=== PATIENT | male | born 1950 | race Caucasian/White ===

== ENCOUNTER 2017-08-15 17:40 | Emergency (ER) | payer MEDICARE, BC ==
[2017-08-15] MEDS ORDERED: Alum Hydrox/Mag Hydrox/Simeth 30 ML, Lidocaine 2% 15 ML PO ONE ×2 (19:01)
[2017-08-15] MEDS ORDERED: Pantoprazole 40 MG Tab.CR ONE (20:02)
--- NOTE | 2017-08-15 20:44 | EDM.PDOC ---
ED HPI GENERAL MEDICAL PROBLEM - General Chief Complaint: Abdominal Pain Stated Complaint: chest pain sweating Time Seen by Provider: 08/15/17 18:40 Source of Information: Reports: Patient History Limitations: Reports: No Limitations - History of Present Illness INITIAL COMMENTS - FREE TEXT/NARRATIVE: This patient complains of right upper quadrant pain since about 3 PM today. He says it's kind of a constant pain. He's had the same pain on an occasional basis for the past week. He said the pain would come on and last about 10 minutes and just go away all by itself. There's been no fever no nausea vomiting diarrhea is moving his bowels normally. He hasn't really eaten anything today so he doesn't know if that will affect the pain or not. No history of any abdominal surgeries. No history of peptic ulcer disease no history of any heart disease. He said the pain has subsided some at the time that I saw him area he described it as about a 5 out of 10. Later his complained that he was very diaphoretic when he came into the hospital. He said as soon as he got here the the diaphoresis stopped. - Related Data Allergies Allergy/AdvReac Type Severity Reaction Status Date / Time No Known Allergies Allergy Verified 04/06/15 07:59 Home Meds: Home Meds Aspirin [Low Dose Aspirin EC] 81 mg PO DAILY 04/03/15 [History] HCTZ/Triamterene [Maxzide 25-37.5 MG] 1 tab PO DAILY 04/03/15 [History] Lisinopril [Prinivil] 20 mg PO DAILY 04/03/15 [History] Simvastatin [Zocor] 20 mg PO DAILY 04/03/15 [History] Past Medical History Cardiovascular History: Reports: High Cholesterol, Hypertension Social & Family History - Tobacco Use Smoking Status *Q: Current Every Day Smoker Years of Tobacco use: 40 Packs/Tins Daily: 1 Used Tobacco, but Quit: No Second Hand Smoke Exposure: Yes - Alcohol Use Days Per Week of Alcohol Use: 7 Number of Drinks Per Day: 2 Total Drinks Per Week: 14 - Recreational Drug Use Recreational Drug Use: No ED ROS GENERAL - Review of Systems Review Of Systems: ROS reveals no pertinent complaints other than HPI. ED EXAM, GI/ABD - Physical Exam Exam: See Below Exam Limited By: No Limitations General Appearance: Alert, WD/WN, No Apparent Distress Eyes: Bilateral: Normal Appearance Respiratory/Chest: Lungs Clear Cardiovascular: Regular Rate, Rhythm, No Murmur GI/Abdominal Exam: Normal Bowel Sounds, Soft, Non-Tender (No areas of tenderness were found. No masses) Extremities: Normal Inspection Neurological: Alert, Oriented Psychiatric: Normal Affect Skin Exam: Warm, Dry Course - Vital Signs Last Recorded V/S: Last Vital Signs Temp 36.5 C 08/15/17 19:29 Pulse 70 08/15/17 19:29 Resp 10 L 08/15/17 19:29 BP 134/85 08/15/17 19:29 Pulse Ox 99 08/15/17 19:29 - Orders/Labs/Meds Orders: Active Orders 24 hr Category Date Time Status EKG Documentation Completion [RC] ASDIRECTED Care 08/15/17 19:01 Active Pantoprazole [ProTONIX] Med 08/16/17 19:57 Once 40 mg PO ONETIME ONE EKG 12 Lead [EK] Urgent Ther 08/15/17 19:00 Ordered Medication Orders Pantoprazole Sodium (Protonix) 40 mg PO ONETIME ONE Stop: 08/16/17 19:58 Last Admin: 08/15/17 20:03 Dose: 40 mg Labs: Laboratory Tests 08/15/17 08/15/17 08/15/17 Range/Units 19:13 19:13 19:57 WBC 15.6 H (4.5-11.0) K/uL RBC 5.40 (4.30-5.90) M/uL Hgb 15.6 H (12.0-15.0) g/dL Hct 45.3 (40.0-54.0) % MCV 84 (80-98) fL MCH 29 (27-31) pg MCHC 34 (32-36) % Plt Count 231 (150-400) K/uL Neut % (Auto) 87 H (36-66) % Lymph % (Auto) 9 L (24-44) % [place] % (Auto) 3 (2-6) % Eos % (Auto) 0 L (2-4) % Baso % (Auto) 0 (0-1) % Sodium 140 (140-148) mmol/L Potassium 4.3 (3.6-5.2) mmol/L Chloride 104 (100-108) mmol/L Carbon Dioxide 27 (21-32) mmol/L Anion Gap 9.0 (5.0-14.0) mmol/L BUN 21 H (7-18) mg/dL Creatinine 1.1 (0.8-1.3) mg/dL Est Cr Clr Drug Dosing 55.67 mL/min Estimated GFR (MDRD) > 60 (>60) Glucose 167 H (74-106) mg/dL Calcium 9.3 (8.5-10.1) mg/dL Total Bilirubin 0.4 (0.2-1.0) mg/dL AST 17 (15-37) U/L ALT 33 (12-78) U/L Alkaline Phosphatase 78 (46-116) U/L Troponin I < 0.017 (0.000-0.056) ng/mL Total Protein 7.3 (6.4-8.2) g/dL Albumin 4.0 (3.4-5.0) g/dL Globulin 3.3 (2.3-3.5) g/dL Albumin/Globulin Ratio 1.2 (1.2-2.2) Meds: Medications Generic Name Dose Route Start Last Admin Trade Name Frenitza PRN Reason Stop Dose Admin Pantoprazole Sodium 40 mg 08/16/17 19:57 08/15/17 20:03 Protonix PO 08/16/17 19:58 40 mg ONETIME ONE Administration Discontinued Medications Generic Name Dose Route Start Last Admin Trade Name Sean PRN Reason Stop Dose Admin Al Hydroxide/Mg Hydroxide 30 0 ml 08/15/17 19:01 08/15/17 19:05 ml/ Lidocaine HCl 15 ml PO 08/15/17 19:02 45 ml ONETIME ONE Administration Pantoprazole Sodium Confirm 08/15/17 20:02 08/15/17 20:09 Protonix Administered 08/15/17 20:03 Not Given Dose 40 mg .ROUTE .STK-MED ONE - Re-Assessments/Exams Free Text/Narrative Re-Assessment/Exam: 08/15/17 20:42 EKG showed normal sinus rhythm at 67 bpm normal QRS normal ST and T waves. Labs were reviewed. The white blood cell count is mildly elevated with some left shift. 08/15/17 20:43 Since the patient is having pain without any tenderness I was concerned that this might be a cardiac issue. This EKG was done and then I did a troponin. The troponin when it was drawn it was at about 4 hours after his pain started. Therefore there was no reason to repeat the troponin. The patient received a GI cocktail and he does think that helped quite a bit. He is just having very mild discomfort at the time of discharge. He received Protonix 40 mg by mouth Departure - Departure Time of Disposition: 20:44 Disposition: Home, Self-Care 01 Condition: Fair Clinical Impression: Right upper quadrant abdominal pain - Discharge Information Referrals: Grabiel Ponce MD [Primary Care Provider] - Additional Instructions: The pain you're having is likely is from gastritis or duodenitis or possibly even an ulcer. You should bring back a stool sample to be tested for H. pylori. That's a bacteria that can be implicated in ulcer disease. Take omeprazole 20 mg once or twice daily. The zoun-jof-earkmuv medication is okay. Also use antacids frequently the best antiacids or Maalox Mylanta but and antiacids tablet such as Tums will also work. If you use the time you need to take 3 or 4 tablets at one time. The sweating you had may have been caused by a vasovagal reaction that something that happens when people have abdominal pain and they're heart slows down and blood pressure drops and they break out in sweats. It's not anything serious. I don't see any evidence of a heart attack Plan to see your DrEdwin in a few days. Return to the ER at any time if worse - My Orders Last 24 Hours: My Active Orders 08/15/17 19:00 EKG 12 Lead [EK] Urgent 08/15/17 19:01 EKG Documentation Completion [RC] ASDIRECTED 08/16/17 19:57 Pantoprazole [ProTONIX] 40 mg PO ONETIME ONE - Assessment/Plan Last 24 Hours: My Active Orders 08/15/17 19:00 EKG 12 Lead [EK] Urgent 08/15/17 19:01 EKG Documentation Completion [RC] ASDIRECTED 08/16/17 19:57 Pantoprazole [ProTONIX] 40 mg PO ONETIME ONE
[2017-08-15 21:05] VITALS: BP 143/85
[2017-08-16] MEDS ORDERED: Pantoprazole 40 MG Tab.CR PO ONE (19:57)
== END 2017-08-15 21:06 | disposition home or self-care (01) ==
LOC: JP.ED 17:40
DX: R10.11 Right upper quadrant pain (principal); E78.00 Pure hypercholesterolemia, unspecified; I10 Essential (primary) hypertension; F17.210 Nicotine dependence, cigarettes, uncomplicated; Z79.82 Long term (current) use of aspirin; Z79.899 Other long term (current) drug therapy
CPT/HCPCS: 36415; 80053; 84484; 85025; 93005; 99285; A9270

== ENCOUNTER 2017-12-23 07:43 | Day surgery (SDC) | payer MEDICARE, BC ==
[2017-12-23] MEDS ORDERED: Lactated Ringers 1,000 ML IV SCH (08:30)
[2017-12-23] MEDS ORDERED: Propofol 200 MG/20 ML SDV ONE (08:59)
[2017-12-23] MEDS ORDERED: fentaNYL 100 MCG/2 ML SDV ONE (08:59)
[2017-12-23] MEDS ORDERED: Midazolam 1 MG/ML 2 ML SDV ONE (08:59)
[2017-12-23 10:52] VITALS: BP 117/78
--- NOTE | 2017-12-23 11:42 | OR ---
DATE OF PROCEDURE: 12/23/2017 PREOPERATIVE DIAGNOSIS: History of adenomatous colon polyps. POSTOPERATIVE DIAGNOSES: 1. Diverticulosis. 2. Two small colon polyps, hepatic flexure and 25 cm from the anal verge. 3. History of adenomatous colon polyps. PROCEDURES PERFORMED: Colonoscopy to the cecum with biopsy resection of 2 small colon polyps, hepatic flexure and 25 cm from the anal verge. ANESTHESIA: IV anesthesia with monitored anesthesia care. INDICATION: This 67-year-old white male is referred for a colonoscopy because of a history of adenomatous colon polyps. His last colonoscopic exam, he says, was done 3 years ago. I counseled him for the procedure including risks and alternatives, and he gave his informed consent to proceed. DESCRIPTION OF PROCEDURE: The patient was placed in the left lateral decubitus position. IV anesthesia was administered by the Anesthesia Service. Time-out was held. A rectal exam was performed, which was unremarkable. The flexible video Olympus colonoscope was introduced through his anus, up his rectum and out his colon, all the way to the cecum. En route, we saw a few scattered diverticula. There was no bleeding or inflammation associated with them. Also, en route to the cecum, we saw a small polyp at the hepatic flexure, which was removed with a couple of bites of the biopsy forceps. Once the cecum was reached, the scope was slowly withdrawn, examining the mucosa throughout. No additional mucosal abnormalities were noted until we reached 25 cm from the anal verge. Here, we saw a small polyp, which was removed with the biopsy forceps. The scope was brought back in the rectum, where it was retroflexed. The distal rectum appeared unremarkable. The scope was straightened and removed. He tolerated the procedure well. Paul Theodore MD /[id number]
== END 2017-12-23 11:02 | disposition home or self-care (01) ==
LOC: JP.SDS 07:43
PROVIDERS: ATTEND Surgery
DX: Z12.11 Encounter for screening for malignant neoplasm of colon (principal); D12.3 Benign neoplasm of transverse colon; K63.5 Polyp of colon; K57.30 Diverticulosis of large intestine without perforation or abscess without bleeding; I10 Essential (primary) hypertension; J44.9 Chronic obstructive pulmonary disease, unspecified; G47.33 Obstructive sleep apnea (adult) (pediatric); E78.5 Hyperlipidemia, unspecified; Z86.010 Personal history of colon polyps
CPT/HCPCS: 45380; J2250; J2704; J3010; J7120

== ENCOUNTER 2018-01-19 05:50 | Day surgery (SDC) | payer MEDICARE, BC ==
[2018-01-19] MEDS ORDERED: Sodium Chloride 0.9% 1,000 ML IV SCH ×2 (06:30→14:30)
[2018-01-19] MEDS ORDERED: Bupivacaine 0.5% 50 ML MDV ONE (06:53)
[2018-01-19] MEDS ORDERED: Lidocaine 1% with EPINEPHrine 1:100,000 50 ML MDV ONE (06:53)
[2018-01-19] MEDS ORDERED: Ondansetron 4 MG/2 ML SDV ONE (07:22)
[2018-01-19] MEDS ORDERED: Glycopyrrolate 0.2 MG/ML 5 ML MDV ONE (07:22)
[2018-01-19] MEDS ORDERED: Dexamethasone 4 MG/ML SDV ONE (07:22)
[2018-01-19] MEDS ORDERED: Propofol 200 MG/20 ML SDV ONE (07:22)
[2018-01-19] MEDS ORDERED: fentaNYL 250 MCG/5 ML SDV ONE (07:22)
[2018-01-19] MEDS ORDERED: Rocuronium 50 MG/5 ML Vial ONE (07:22)
[2018-01-19] MEDS ORDERED: Neostigmine Methylsulfate 1 MG/ML 5 ML Syringe ONE (07:22)
[2018-01-19] MEDS ORDERED: metroNIDAZOLE/Normal Saline 500 MG in Premix Bag 1 BAG IV ONE (07:30)
[2018-01-19] MEDS ORDERED: ceFAZolin 2 GM in Premix Bag 1 BAG IV ONE (07:30)
[2018-01-19] MEDS ORDERED: Acetaminophen 325 MG Tab PO PRN (07:50)
[2018-01-19] MEDS ORDERED: Acetaminophen/HYDROcodone 325-5 MG Tab PO PRN (07:50)
[2018-01-19] MEDS ORDERED: Benzocaine/Cetylpyridinium/Menthol Lozenge MUCMEM PRN (07:50)
[2018-01-19] MEDS ORDERED: Zolpidem 5 MG Tab PO PRN (07:50)
[2018-01-19] MEDS ORDERED: diphenhydrAMINE 50 MG/ML SDV IVPUSH PRN (07:50)
[2018-01-19] MEDS ORDERED: fentaNYL 100 MCG/2 ML SDV IVPUSH PRN (07:50)
[2018-01-19] MEDS ORDERED: Bisacodyl 5 MG Tab PO PRN (07:50)
[2018-01-19] MEDS ORDERED: Lactated Ringers 1,000 ML ONE (09:18)
[2018-01-19] MEDS ORDERED: Ketorolac 60 MG/2 ML SDV ONE (09:23)
[2018-01-19] MEDS ORDERED: fentaNYL 100 MCG/2 ML SDV ONE (09:29)
[2018-01-19] MEDS ORDERED: Lactated Ringers 500 ML IV ONE (11:30)
[2018-01-19] MEDS ORDERED: Sodium Chloride 0.9% 1,000 ML IV ONE (12:19)
[2018-01-19] MEDS ORDERED: Lidocaine 2% Jelly 10 ML Urojet MUCMEM ONE (13:26)
[2018-01-19] MEDS ORDERED: Finasteride 5 MG Tab PO SCH (17:00)
--- NOTE | 2018-01-19 17:55 | PN ---
DATE OF SERVICE: 01/19/2018 The patient recently underwent a successful laparoscopic cholecystectomy. Unfortunately, immediately in the perioperative/postoperative area, the Mathews catheter was removed, and the balloon might have been partially deflated. This resulted in some significant bleeding from the urethra. A consultation was obtained with the Urology services at [facility]. After presenting the case, the recommendations at this point were to not attempt to place a Mathews catheter at this time, place the patient on Proscar, and reassess in the a.m. Therefore, the patient will remain in the hospital this evening for management and observation. A CBC has also been ordered in the morning. In discussing with the patient, the injury was disclosed to him. He did state that he has some ongoing prostate issues, which are obviously a contributing factor to this. When the patient was last seen, he was urinating on his own, albeit slow, but this has improved. His vital signs have remained stable. Total bleeding was approximately 100 mL with respect to urethral bleeding or less. Rodrigue Ruiz MD /[id number]
[2018-01-19] MEDS: Sodium Chloride 0.9% 1,000 ML IV SCH (23:04)
--- NOTE | 2018-01-20 06:57 | OR ---
DATE OF PROCEDURE: 01/19/2018 PROCEDURE: Laparoscopic cholecystectomy. PREOPERATIVE DIAGNOSES: Cholelithiasis and cholecystitis. POSTOPERATIVE DIAGNOSES: Cholelithiasis and cholecystitis. FINDINGS: 1. Dense adhesions/adherence of the gallbladder to the liver. 2. Omental wrapping around gallbladder consistent with significant cholecystitis. COMPLICATIONS: None. PEDIATRIC CARE COORDINATOR: None. ANESTHESIA: General/local. RISKS: In the clinic and prior to the surgery; preoperative risks, benefits, alternatives, and limitations including, but not limited to infection, bleeding, perforation, injury to abdominal structures, injury to bowel and bladder, the possibility of open surgery, cystic duct leaks, and common bile duct injuries were all explained to the patient among others not listed here. We also discussed cardiovascular issues associated with the general risks of surgery. PROCEDURE IN DETAIL: The patient was placed in the supine position. A supraumbilical curvilinear incision was made. A Veress needle was used to enter the abdomen without abnormality. A drop test was performed without abnormality. The abdomen was subsequently insufflated with a Veress needle, this was then removed, and an Optiview trocar was inserted. No evidence of trauma or enterotomy or injury was noted. A photo was taken of the entry point. An additional 10 and two 5 mm ports were also entered under direct visualization. The gallbladder itself was completely surrounded with omentum and significant adhesions were associated with this. Also, of note, the stomach was in close proximity to the gallbladder, however, it was not directly contacting this. Using blunt dissection, the gallbladder will be mobilized from this. The gallbladder was retracted cephalad and the infundibulum was retracted inferolaterally. Over the next approximately 30 minutes, a blunt dissection was performed with a "clear view" of the gallbladder, a single pulsatile structure in the gallbladder and a single nonpulsatile structure in the gallbladder, that itself was small. The cystic duct would be clipped and then subsequently transected. Images were also taken. The remaining one-third of the gallbladder was removed off the liver without difficulty, except for the cap portion of the gallbladder was densely adhered and during this process, small bile leakage was noted, but was suctioned and later irrigated. Total leakage was approximately 2 to 5 mL. The gallbladder was removed from the abdomen in a gallbladder bag. The liver bed was inspected. Minimal bleeding was controlled with electrocautery. The abdomen was thoroughly irrigated with approximately 750 mL of irrigation. The patient was turned in multiple positions to maximize removal of the saline. The entry point was then reinspected. The air was removed. The wounds were thoroughly irrigated. The bag did not break during removal. The wounds were closed with 3-0 Vicryl and 4-0 Vicryl and Dermabond. The patient tolerated the procedure well. Rodrigue Ruiz MD /[id number]
[2018-01-20 07:22] VITALS: BP 108/73
[2018-01-20] MEDS: Sodium Chloride 0.9% 1,000 ML IV SCH (07:22)
--- NOTE | 2018-01-20 09:28 | US ---
Pelvis Non OB Ltd CLINICAL HISTORY: Hematuria FINDINGS: Real-time transvesical images through the bladder show no intraluminal filling defects. The re is no wall thickening. Full bladder volume was 361-cc. Bilateral ureteral jets were identified. No free fluid is seen in the pelvis. Prostate is enlarged IMPRESSION: Essentially normal-appearing bladder with no filling defects Prostatic enlargement
== END 2018-01-20 09:16 | disposition home or self-care (01) ==
LOC: JP.SDS 05:50 → JP.2SS 07:50 → JP.SDS 01-20 09:16
PROVIDERS: ATTEND Surgery
DX: K80.10 Calculus of gallbladder with chronic cholecystitis without obstruction (principal); K82.8 Other specified diseases of gallbladder; N99.820 Postprocedural hemorrhage of a genitourinary system organ or structure following a genitourinary system procedure; I10 Essential (primary) hypertension; J44.9 Chronic obstructive pulmonary disease, unspecified; G47.33 Obstructive sleep apnea (adult) (pediatric); F17.290 Nicotine dependence, other tobacco product, uncomplicated; E78.5 Hyperlipidemia, unspecified; Z79.82 Long term (current) use of aspirin; Z79.899 Other long term (current) drug therapy
CPT/HCPCS: 36415; 47562; 51702; 76857; 80053; 85027; 87070; 87075; 87205; 88304; A9270; J0690; J1100; J1885; J2405; J2704; J2710; J3010; J3490; J7030; J7120

== ENCOUNTER 2018-01-21 09:38 | Emergency (ER) | payer MEDICARE, BC ==
[2018-01-21] MEDS ORDERED: Ondansetron 4 MG/2 ML SDV IVPUSH ONE ×2 (10:54→13:38)
[2018-01-21] MEDS ORDERED: Sodium Chloride 0.9% 1,000 ML IV SCH ×2 (11:00→12:30)
--- NOTE | 2018-01-21 11:05 | EDM.PDOC ---
ED HPI GENERAL MEDICAL PROBLEM - General Chief Complaint: Gastrointestinal Problem Stated Complaint: BEEN VOMING HAD GULLBLADDER SURGERY Time Seen by Provider: 01/21/18 11:01 Source of Information: Reports: Patient History Limitations: Reports: No Limitations - History of Present Illness INITIAL COMMENTS - FREE TEXT/NARRATIVE: pt had his GB removed on thursday nad he has not had a stool since that time. He passed gas this am but had not passed gas prior to that. He has not had any stools. He did vomit three times this am. He vomited alot of green material. Onset: Gradual, Other ( Pt has not done well post coby. ) Duration: Hour(s): Location: Reports: Abdomen Associated Symptoms: Reports: Nausea/Vomiting, Other ( No stools. ) - Related Data Allergies Allergy/AdvReac Type Severity Reaction Status Date / Time No Known Allergies Allergy Verified 01/21/18 10:00 Home Meds: Home Meds Aspirin [Low Dose Aspirin EC] 81 mg PO DAILY 04/03/15 [History] HCTZ/Triamterene [Maxzide 25-37.5 MG] 1 tab PO DAILY 04/03/15 [History] Lisinopril [Prinivil] 10 mg PO DAILY 04/03/15 [History] Simvastatin [Zocor] 20 mg PO DAILY 04/03/15 [History] Albuterol Sulfate [Proair Hfa] 1 - 2 puff IH Q4HR PRN 12/21/17 [History] Past Medical History Cardiovascular History: Reports: High Cholesterol, Hypertension Respiratory History: Reports: COPD Gastrointestinal History: Reports: Cholelithiasis - Infectious Disease History Infectious Disease History: Reports: Chicken Pox, Measles, Mumps - Past Surgical History Cardiovascular Surgical History: Reports: None GI Surgical History: Reports: Cholecystectomy, Colonoscopy Social & Family History - Family History Cardiac: Reports: Pacemaker GI: Reports: Cholelithiasis Psychiatric: Reports: Depression - Caffeine Use Caffeine Use: Reports: Coffee - Recreational Drug Use Recreational Drug Use: No ED ROS GENERAL - Review of Systems Review Of Systems: See Below Constitutional: Reports: No Symptoms HEENT: Reports: No Symptoms Respiratory: Reports: No Symptoms Cardiovascular: Reports: No Symptoms Endocrine: Reports: No Symptoms GI/Abdominal: Reports: Distension, Other (pt is vomiting and has not had any stools. ) : Reports: No Symptoms Musculoskeletal: Reports: No Symptoms Skin: Reports: No Symptoms Neurological: Reports: No Symptoms ED EXAM, GI/ABD - Physical Exam Exam: See Below Text/Narrative:: PT ARRIVED WITH AHISTORY OF VOMITING SEVERAL TIMES THIS AM. hE HAS NOT HAD A BM SINCE Exam Limited By: No Limitations General Appearance: Alert, Mild Distress, Other (PUPILS ARE EQUAL AND REACTIVE. ) Ears: Normal TMs Nose: Normal Inspection Throat/Mouth: Normal Inspection Head: Atraumatic Neck: Normal Inspection Respiratory/Chest: No Respiratory Distress Cardiovascular: Regular Rate, Rhythm GI/Abdominal Exam: Other (MILD DISTENTION AND TENDERNESS. ) (Male) Exam: Deferred Rectal (Males) Exam: Deferred Back Exam: Normal Inspection Extremities: Normal Inspection Neurological: Alert, Oriented, Normal Cognition Psychiatric: Normal Affect Course - Vital Signs Last Recorded V/S: Last Vital Signs Temp 37.2 C 01/21/18 09:58 Pulse 95 01/21/18 09:58 Resp 16 01/21/18 09:58 BP 122/72 01/21/18 09:58 Pulse Ox 95 01/21/18 09:58 - Orders/Labs/Meds Orders: Active Orders 24 hr Category Date Time Status UA W/MICROSCOPIC [URIN] Urgent Lab 01/21/18 12:05 Ordered Sodium Chloride 0.9% [Normal Saline] 1,000 ml Med 01/21/18 11:00 Active IV ASDIRECTED Sodium Chloride 0.9% [Normal Saline] 1,000 ml Med 01/21/18 12:30 Active IV ASDIRECTED Medication Orders Sodium Chloride (Normal Saline) 1,000 mls @ 999 mls/hr IV ASDIRECTED PRERNA Last Admin: 01/21/18 12:14 Dose: 999 mls/hr Sodium Chloride (Normal Saline) 1,000 mls @ 999 mls/hr IV ASDIRECTED PRERNA Labs: Laboratory Tests 01/21/18 01/21/18 01/21/18 Range/Units 11:06 11:06 11:06 WBC 18.8 H (4.5-11.0) K/uL RBC 5.01 (4.30-5.90) M/uL Hgb 14.6 D (12.0-15.0) g/dL Hct 42.5 (40.0-54.0) % MCV 85 (80-98) fL MCH 29 (27-31) pg MCHC 34 (32-36) % Plt Count 225 (150-400) K/uL Neut % (Auto) 79 H (36-66) % Lymph % (Auto) 12 L (24-44) % [place] % (Auto) 8 H (2-6) % Eos % (Auto) 0 L (2-4) % Baso % (Auto) 0 (0-1) % Sodium 137 L (140-148) mmol/L Potassium 3.8 (3.6-5.2) mmol/L Chloride 103 (100-108) mmol/L Carbon Dioxide 29 (21-32) mmol/L Anion Gap 8.8 (5.0-14.0) mmol/L BUN 16 (7-18) mg/dL Creatinine 1.0 (0.8-1.3) mg/dL Est Cr Clr Drug Dosing 71.99 mL/min Estimated GFR (MDRD) > 60 (>60) Glucose 125 H (74-106) mg/dL Calcium 10.0 (8.5-10.1) mg/dL Total Bilirubin 0.6 (0.2-1.0) mg/dL AST 33 (15-37) U/L ALT 69 (12-78) U/L Alkaline Phosphatase 61 (46-116) U/L Total Protein 6.9 (6.4-8.2) g/dL Albumin 3.5 (3.4-5.0) g/dL Globulin 3.4 (2.3-3.5) g/dL Albumin/Globulin Ratio 1.0 L (1.2-2.2) Lipase 64 L (73-393) U/L Meds: Medications Generic Name Dose Route Start Last Admin Trade Name Freq PRN Reason Stop Dose Admin Sodium Chloride 1,000 mls @ 999 mls/hr 01/21/18 11:00 01/21/18 12:14 Normal Saline IV 999 mls/hr ASDIRECTED PRERNA Administration Sodium Chloride 1,000 mls @ 999 mls/hr 01/21/18 12:30 Normal Saline IV ASDIRECTED PRERNA Discontinued Medications Generic Name Dose Route Start Last Admin Trade Name Freq PRN Reason Stop Dose Admin Ondansetron HCl 4 mg 01/21/18 10:54 01/21/18 12:15 Zofran IVPUSH 01/21/18 10:55 4 mg ONETIME ONE Administration Ondansetron HCl 4 mg 01/21/18 13:38 01/21/18 14:06 Zofran IVPUSH 01/21/18 13:39 4 mg ONETIME ONE Administration - Re-Assessments/Exams Free Text/Narrative Re-Assessment/Exam: 01/21/18 12:48 pT HAS A 18,000 WBC. hIS OTHER LABS LOOK GOOD. hE WILL BE GIVEN 2 LITERS OF FLUID. hIS FLAT AND UPRIGHT HAVE A FEW AIR FLUID LEVELS. hE HAS ALOT OF STOOL IN THE RT UPPER ABDOMAN. hE HAS BEEN GIVEN ZOFORAN IV AND HIS NAUSEA IS BETTER. dR RUIZ WAS CALLED AND HE WILL COME AND SEE HIM. 01/21/18 14:08 pt was offered to stay over nite but he insisted on going home. Dr Ruiz came to see pt and wrote discharge orders since he insisted on going home. Departure - Departure Time of Disposition: 14:10 Disposition: Home, Self-Care 01 Condition: Fair Clinical Impression: Ileus, Dehydration, Post-cholecystectomy syndrome - Discharge Information Referrals: Grabiel Ponce MD [Primary Care Provider] - Forms: ED Department Discharge Care Plan Goals: discharge per Dr Ruiz - My Orders Last 24 Hours: My Active Orders 01/21/18 11:00 Sodium Chloride 0.9% [Normal Saline] 1,000 ml IV ASDIRECTED 01/21/18 12:05 UA W/MICROSCOPIC [URIN] Urgent 01/21/18 12:30 Sodium Chloride 0.9% [Normal Saline] 1,000 ml IV ASDIRECTED - Assessment/Plan Last 24 Hours: My Active Orders 01/21/18 11:00 Sodium Chloride 0.9% [Normal Saline] 1,000 ml IV ASDIRECTED 01/21/18 12:05 UA W/MICROSCOPIC [URIN] Urgent 01/21/18 12:30 Sodium Chloride 0.9% [Normal Saline] 1,000 ml IV ASDIRECTED
--- NOTE | 2018-01-21 12:15 | CR ---
Abdomen Series w Chest 1V CLINICAL HISTORY: Bloating and vomiting FINDINGS: Lung rosario are clear. No free air is identified. Small intestinal gas pattern is nonacute. There is moderate stool in the right colon. There is air in the low mid pelvis with the air-fluid le angle. This may be air within the bladder or possibly fluid in the rectum IMPRESSION: Nonacute intestinal gas pattern Moderate retained stool right colon Air in the low mid pelvis may be within the bladder
[2018-01-21 14:16] VITALS: BP 121/75
[2018-01-21] MEDS ORDERED: Magnesium Citrate Solution 296 ML Bottle PO ONE (14:30)
[2018-01-21] MEDS ORDERED: Scopolamine 1.5 MG Transdermal Patch TOP ONE (14:30)
--- NOTE | 2018-01-21 18:04 | PN ---
DATE OF SERVICE: 01/21/2018 The patient presented to the emergency room in concern for ileus. He is passing gas and has not had a bowel movement in a few days. X-rays consistent with constipation. The patient was recommended to be admitted; however, he declined this at this time. Therefore, we will make sure he is adequately hydrated with 2 L of saline. Orders were left in the emergency room if the patient changes his mind. We did discuss the signs and symptoms of ileus, obstipation and other concerns such as cystic duct and common bile duct leaks; although, these are less likely. His labs are normal. He is to contact us or present back to the emergency room if he liked to be admitted. Rodrigue Ruiz MD /[id number]
== END 2018-01-21 15:45 | disposition home or self-care (01) ==
LOC: JP.ED 09:38
DX: E86.0 Dehydration (principal); K56.7 Ileus, unspecified; K91.5 Postcholecystectomy syndrome; E78.00 Pure hypercholesterolemia, unspecified; I10 Essential (primary) hypertension; R11.10 Vomiting, unspecified; J44.9 Chronic obstructive pulmonary disease, unspecified; Z79.82 Long term (current) use of aspirin; Z79.899 Other long term (current) drug therapy; F17.290 Nicotine dependence, other tobacco product, uncomplicated
CPT/HCPCS: 36415; 74022; 80053; 83690; 85025; 96361; 96374; 96376; 99284; A9270; J2405; J7030

== ENCOUNTER 2018-01-23 11:34 | Emergency (ER) | payer MEDICARE, BC ==
[2018-01-23] MEDS ORDERED: Lactated Ringers 1,000 ML IV ONE (12:05)
[2018-01-23] MEDS ORDERED: Prochlorperazine 10 MG/2 ML SDV IVPUSH ONE (12:05)
--- NOTE | 2018-01-23 12:07 | EDM.PDOC ---
ED HPI GENERAL MEDICAL PROBLEM - General Chief Complaint: Gastrointestinal Problem Stated Complaint: DR RUIZ PATIENT Time Seen by Provider: 01/23/18 12:00 Source of Information: Reports: Patient, Family, RN Notes Reviewed History Limitations: Reports: No Limitations - History of Present Illness INITIAL COMMENTS - FREE TEXT/NARRATIVE: 67-year-old gentleman presents to the emergency department day complaint of nausea and vomiting, he recently had his gallbladder out this last week he is postop day 3 his problem is he has not vomited for 24 hours however if he starts to eat or drink he gets very nauseated. No fevers no shortness breath chest pain he is positive for flatus Abdomen Pain Score (Numeric/FACES): 4 - Related Data Allergies Allergy/AdvReac Type Severity Reaction Status Date / Time No Known Allergies Allergy Verified 01/21/18 10:00 Home Meds: Home Meds Aspirin [Low Dose Aspirin EC] 81 mg PO DAILY 04/03/15 [History] HCTZ/Triamterene [Maxzide 25-37.5 MG] 1 tab PO DAILY 04/03/15 [History] Lisinopril [Prinivil] 10 mg PO DAILY 04/03/15 [History] Simvastatin [Zocor] 20 mg PO DAILY 04/03/15 [History] Albuterol Sulfate [Proair Hfa] 1 - 2 puff IH Q4HR PRN 12/21/17 [History] Ondansetron [Zofran ODT] 4 mg PO Q6H PRN 01/23/18 [History] Scopolamine [Transderm-Scop] 1 each TD ONETIME PRN 01/23/18 [History] Past Medical History HEENT History: Reports: Impaired Vision Cardiovascular History: Reports: High Cholesterol, Hypertension Respiratory History: Reports: COPD Gastrointestinal History: Reports: Cholelithiasis - Infectious Disease History Infectious Disease History: Reports: Chicken Pox, Measles, Mumps - Past Surgical History Cardiovascular Surgical History: Reports: None GI Surgical History: Reports: Cholecystectomy, Colonoscopy Other GI Surgeries/Procedures: choly on 01/18/18 Social & Family History - Family History Cardiac: Reports: Pacemaker GI: Reports: Cholelithiasis Psychiatric: Reports: Depression - Tobacco Use Smoking Status *Q: Current Every Day Smoker Years of Tobacco use: 50 Packs/Tins Daily: 0.5 - Caffeine Use Caffeine Use: Reports: Coffee - Recreational Drug Use Recreational Drug Use: No ED ROS GENERAL - Review of Systems Review Of Systems: See Below Constitutional: Denies: Fever, Chills HEENT: Reports: No Symptoms Respiratory: Reports: No Symptoms Cardiovascular: Reports: No Symptoms GI/Abdominal: Reports: Flatus, Nausea, Vomiting. Denies: Abdominal Pain : Reports: No Symptoms Musculoskeletal: Reports: No Symptoms ED EXAM, GI/ABD - Physical Exam Exam: See Below Exam Limited By: No Limitations General Appearance: Alert, WD/WN, No Apparent Distress Respiratory/Chest: No Respiratory Distress, Lungs Clear, Normal Breath Sounds, No Accessory Muscle Use Cardiovascular: Regular Rate, Rhythm, No Murmur GI/Abdominal Exam: Soft, Non-Tender Course - Vital Signs Last Recorded V/S: Last Vital Signs Temp 97.7 F 01/23/18 12:21 Pulse 63 01/23/18 13:20 Resp 14 01/23/18 12:50 BP 138/81 01/23/18 13:20 Pulse Ox 96 01/23/18 13:20 - Orders/Labs/Meds Labs: Laboratory Tests 01/23/18 01/23/18 Range/Units 12:12 12:12 WBC 14.2 H (4.5-11.0) K/uL RBC 4.77 (4.30-5.90) M/uL Hgb 13.8 (12.0-15.0) g/dL Hct 40.8 (40.0-54.0) % MCV 86 (80-98) fL MCH 29 (27-31) pg MCHC 34 (32-36) % Plt Count 264 (150-400) K/uL Neut % (Auto) 79 H (36-66) % Lymph % (Auto) 13 L (24-44) % Braxton % (Auto) 7 H (2-6) % Eos % (Auto) 0 L (2-4) % Baso % (Auto) 0 (0-1) % Sodium 142 (140-148) mmol/L Potassium 3.4 L (3.6-5.2) mmol/L Chloride 103 (100-108) mmol/L Carbon Dioxide 32 (21-32) mmol/L Anion Gap 10.4 (5.0-14.0) mmol/L BUN 34 H D (7-18) mg/dL Creatinine 1.0 (0.8-1.3) mg/dL Est Cr Clr Drug Dosing TNP Estimated GFR (MDRD) > 60 (>60) Glucose 136 H (74-106) mg/dL Calcium 9.6 (8.5-10.1) mg/dL Total Bilirubin 0.5 (0.2-1.0) mg/dL AST 27 (15-37) U/L ALT 58 (12-78) U/L Alkaline Phosphatase 61 (46-116) U/L Total Protein 7.1 (6.4-8.2) g/dL Albumin 3.4 (3.4-5.0) g/dL Globulin 3.7 H (2.3-3.5) g/dL Albumin/Globulin Ratio 0.9 L (1.2-2.2) Meds: Medications Discontinued Medications Generic Name Dose Route Start Last Admin Trade Name Freq PRN Reason Stop Dose Admin Lactated Ringer's 1,000 mls @ 999 mls/hr 01/23/18 12:05 01/23/18 12:19 Ringers, Lactated IV 01/23/18 13:05 999 mls/hr BOLUS ONE Administration Prochlorperazine Edisylate 5 mg 01/23/18 12:05 01/23/18 12:18 Compazine IVPUSH 01/23/18 12:06 5 mg ONETIME ONE Administration Departure - Departure Time of Disposition: 14:39 Disposition: Home, Self-Care 01 Condition: Good Clinical Impression: Ileus - Discharge Information Referrals: Rodrigue Ruiz MD [Primary Care Provider] - Forms: ED Department Discharge Additional Instructions: Continue with your regular medications, continue with the scopolamine patch, Please followup with your primary care provider in 3-5 days if not better, please call return to the emergency department with worsening of symptoms. - Assessment/Plan Plan: Assessment Acuity = acute Site and laterality = ileus Etiology = secondary to cholecystectomy Manifestations = nausea Location of injury = Home Lab values = WBC elevated at 14.2 consistent leukocytosis, potassium low at 3.4 consistent hypokalemia remainder lab work is unremarkable Plan He was able to tolerate a small amount food and liquids in the emergency department with 5 mg of Compazine and 1 L fluids he felt well enough to go home with his continuing with his regular home medications of scopolamine patch was provided prior to discharge This note was dictated using [employer] voice recognition software please call with any questions on syntax or grammar.
[2018-01-23 13:53] VITALS: BP 138/81
[2018-01-23] MEDS ORDERED: Scopolamine 1.5 MG Transdermal Patch TRDERM PRN (14:39)
== END 2018-01-23 14:56 | disposition home or self-care (01) ==
LOC: JP.ED 11:34
DX: K56.7 Ileus, unspecified (principal); I10 Essential (primary) hypertension; F17.210 Nicotine dependence, cigarettes, uncomplicated; Z79.82 Long term (current) use of aspirin; Z79.899 Other long term (current) drug therapy
CPT/HCPCS: 36415; 80053; 85025; 96361; 96374; 99284; A9270; J0780; J7120

== ENCOUNTER 2021-01-29 06:26 | Day surgery (SDC) | payer MEDICARE ==
[2021-01-29] MEDS ORDERED: Sodium Chloride 0.9% 1,000 ML IV SCH (07:00)
[2021-01-29] MEDS ORDERED: fentaNYL 100 MCG/2 ML SDV ONE (07:26)
[2021-01-29] MEDS ORDERED: Propofol 200 MG/20 ML SDV ONE (07:26)
[2021-01-29 09:41] VITALS: BP 113/70; PULSE 67
--- NOTE | 2021-01-29 14:49 | OR ---
DATE OF PROCEDURE: 01/29/2021 SURGEON: Rodrigue Ruiz MD PROCEDURE PERFORMED: Colonoscopy. FINDINGS: Ascending colon polyp, approximately 5 mm, completely removed using hot snare wire device. COMPLICATIONS: None. MANAGER LINUX: None. ANESTHESIA: MAC. PREOPERATIVE DIAGNOSIS: Screening colonoscopy. POSTOPERATIVE DIAGNOSIS: Screening colonoscopy. RISKS: Risks, benefits, alternatives, and limitations including, but not limited to infection, bleeding, perforation, false positives, and false negatives were explained to the patient, and they wished to proceed. PROCEDURE IN DETAIL: The patient was placed in the left lateral decubitus position. Digital rectal exam was performed without abnormality. The scope was introduced and advanced atraumatically to ileocecal valve. A photo was taken. The scope was brought back to the ascending, transverse, and descending colon and retroflexed. No evidence of old or new blood. No masses. The polyp which was identified was completely removed using a hot snare wire device. The patient did have some diverticulosis, described as mild, limited to the sigmoid colon without evidence of diverticulitis or bleeding. Greater than 8 minutes spent removing the scope. The prep was acceptable. Approximately 90% of the luminal surface could be seen. The patient tolerated the procedure well. Rodrigue Ruiz MD /[id number]
== END 2021-01-29 09:46 | disposition home or self-care (01) ==
LOC: JP.SDS 06:26
PROVIDERS: ATTEND Surgery
DX: Z12.11 Encounter for screening for malignant neoplasm of colon (principal); D12.2 Benign neoplasm of ascending colon; K57.30 Diverticulosis of large intestine without perforation or abscess without bleeding; J44.9 Chronic obstructive pulmonary disease, unspecified; G47.33 Obstructive sleep apnea (adult) (pediatric); I10 Essential (primary) hypertension
CPT/HCPCS: J2704; J3010; J7030